=== PATIENT | female | born 1955 ===

== ENCOUNTER 2018-02-07 13:54 | Emergency (ER) | payer OTHER ==
[2018-02-07] MEDS ORDERED: SYNTHROID175 MCG PO (14:07)
[2018-02-07] MEDS ORDERED: NORVASC10 MG PO (14:08)
[2018-02-07] MEDS ORDERED: LIVALO1 MG PO (14:08)
[2018-02-07] MEDS ORDERED: ANAPRIL PO (14:09)
[2018-02-07] MEDS ORDERED: GLIMEPIRIDE4 MG PO (14:10)
[2018-02-07] MEDS ORDERED: [UNRECOGNIZED DRUG - OTHER] PO (14:10)
[2018-02-07] MEDS ORDERED: BUPROPION XL150 MG PO (14:11)
== END 2018-02-07 18:37 | disposition home or self-care (01) ==
LOC: ER 13:54
DX: N20.2 Calculus of kidney with calculus of ureter (principal)